=== PATIENT | male | born 1955 | race Caucasian/White ===

== ENCOUNTER 2020-03-17 19:42 | Emergency (ER) | payer SELFPAY ==
[~2020-03-17 19:42] MED LIST: Iopamidol-370 76% 500 ML 1 ML ONE
[2020-03-17] MEDS ORDERED: Ondansetron PF 4 MG/2 ML Vial ONE (19:50)
[2020-03-17] MEDS ORDERED: Morphine 4 MG/ML VIAL ONE (19:50)
[2020-03-17 20:07] LABS: #Basophils 0.1 thou/uL (0.0-0.2); #Eosinphils 0.1 thou/uL (0.0-0.7); #Monocytes 0.3 thou/uL (0.11-0.59); #Neutrophils 5.6 thou/uL (1.40-6.50); %Basophils 0.6 % (0.0-1.0); %Eosinophils 0.9 % (0.0-10.0); %Lymphocytes 25.2 % (21.0-51.0); %Monocytes 3.2 % (0.0-10.0); %Neutrophils 70.1 % (42.0-75.0); Hemoglobin 14.2 g/dL (14.0-18.0); Mean Corpuscular HGB CONC 33.1 g/dL (32.0-36.0); Mean Corpuscular Volume 96.5 fL (78.0-98.0); Mean Platelet Volume 8.1 fL (7.4-10.4); Platelet Count 180 thou/uL (130-400); RBC Distribution Width 11.8 % (11.5-14.5); Red Blood Cell (RBC) Count 4.44 mill/uL (4.70-6.10)
[2020-03-17] MEDS ORDERED: Fentanyl 100 MCG/2 ML VIAL ONE ×2 (20:10→20:46)
[2020-03-17] MEDS ORDERED: niCARdipine 20MG In NaCl 20 MG/200 ML BAG ONE ×2 (20:10→20:54)
[2020-03-17] MEDS ORDERED: Esmolol 2,500 MG/250 ML 250 ML ONE (20:13)
[2020-03-17 20:14] LABS: INR-International Normal Ratio 1.1
[2020-03-17 20:15] LABS: PTT 33.7 sec (22.9-36.1)
--- NOTE | 2020-03-17 20:27 | CT ---
Head CT without contrast 03/17/2020: Comparison: None HISTORY: Found down, leg numbness TECHNIQUE: Axial CT imaging at 5 mm intervals from vertex through skull base without contrast FINDINGS: The imaged paranasal sinuses and mastoid air cells are well aerated. There is no displaced calvarial fracture. No intracranial hemorrhage, midline shift, or mass effect. Areas of subtle periventricular hypodensity noted, suggesting small vessel disease. Areas of prior lacunar infarction are noted within the periventricular white matter and the basal ganglia on the left. IMPRESSION: Findings suggesting small vessel disease. No intracranial hemorrhage or displaced calvari al fracture.
[2020-03-17 20:30] LABS: ALT (SGPT) Less than 7 U/L (8-55); AST (SGOT) 19 U/L (5-34); Albumin 4.2 g/dL (3.4-4.8); Alkaline Phosphatase 90 U/L (40-110); Anion Gap 25 mmol/L (10-20); BUN (Urea Nitrogen) 18 mg/dL (8.4-25.7); Bilirubin, Total 0.6 mg/dL (0.2-1.2); Calc. Creatinine Clearance 0 mL/min (70-130); Calcium 9.4 mg/dL (7.8-10.44); Carbon Dioxide 13 mmol/L (23-31); Chloride 101 mmol/L (98-107); D-Dimer Test Greater than 20.00 *mcg/mL (0.27-0.43); Estimated GFR-MDRD 52; Globulin 2.9 g/dL (2.4-3.5); Glucose 281 mg/dL (80-115); Potassium 3.6 mmol/L (3.5-5.1); Protein, Total 7.1 g/dL (5.8-8.1); Sodium 135 mmol/L (136-145)
[2020-03-17] MEDS ORDERED: Rocuronium Bromide 10 MG/ML (10ML VIAL) ONE (20:30)
--- NOTE | 2020-03-17 20:34 | CT ---
CT of thecervical spine: 03/17/2020 COMPARISON:None available HISTORY:Found down, leg numbness TECHNIQUE: Serial axial CT imaging at2.5 mm intervals from theskull base through the lung apices with out contrast. Coronal and sagittal reformatted imaging obtained. Findings:The visualized lung apices appear unremarkable. Partially imaged paranasal sinuses and mastoid air cells appear well-aerated. The C1 ring appears intact. There is moderate degenerative change at the atlantoaxial interspace. The craniocervical junction, the atlantoaxial interspace, and the cervicothoracic junction demonstrate no acute findings. The occipital condyles, the dens, and the C1-2 articulation appear within normal l imits. There is fusion of the facet joint on the left at C3-4. There is disc space narrowing with degenerati ve endplate change at C5-6, C6-7, and C7-T1. Multilevel lower lumbar spine facet hypertrophic change present. There is no significant cervical spine anterolisthesis or retrolisthesis. No prevertebral soft tissue swelling is seen. No acute cervical spine fracture or dislocation is appreciated. IMPRESSION: Multilevel degenerative change. No acute osseous abnormality.
--- NOTE | 2020-03-17 20:37 | RAD ---
RADIOGRAPH CHEST 1 VIEW: Date: 03-17-2020 Time: 7:38 P.M. HISTORY: 64-year-old male with hypertension and diaphoresis. COMPARISON: None FINDINGS: Diffusely prominent interstitial markings, especially throughout the left lung, where there is questi on of mild multifocal faint infiltrates in the upper and midlung zones. No consolidation identified i n the right lung. No cardiomegaly. Ectasia and tortuosity in the aorta. No pneumothorax. IMPRESSION: Questionable mild left sided infiltrates. JN POS: JIN
[2020-03-17] MEDS ORDERED: cefTRIAXone\\ROCEPHIN 1 GM VIAL ONE (20:41)
[2020-03-17 20:51] LABS: CKMB 5.2 ng/mL (0-6.6)
--- NOTE | 2020-03-17 21:10 | RAD ---
Supine frontal chest radiograph: 03/17/2020 COMPARISON: 03/17/2020 HISTORY: Evaluate chest following central line placement FINDINGS: Patchy nonspecific parenchymal opacities are noted within the bilateral lung bases, left gr eater than right, better assessed on recent chest CT. There is a right-sided vascular catheter with distal tip overlying the region of the cavoatrial junction. Supine imaging is provided, limiting asse ssment for pneumothorax. There is prominence of the aortic knob, better assessed on prior chest CT as well. IMPRESSION: Right vascular catheter as above.
--- NOTE | 2020-03-17 21:24 | CT ---
CTA THORAX WITH CONTRAST CTA ABDOMEN WITH CONTRAST: (Computed Tomographic Angiography, chest(noncoronary) with contrast material, and image post processi ng) (Computed Tomographic Angiography, abdomen with contrast material, and image post processing) DATE: 03-17-2020 TIME: 8:06 p.m. HISTORY: 64-year-old male with chest pain. At 8:[address] on 03-17-2020 Dr. Melo discussed all of the pertinent findings by telephone with Dr. Ki jiménez of the ER. TECHNIQUE: IV injection of iodinated contrast: 100 mL Isovue 370 Arterial phase bolus chasing technique. Scan acquisition from top of top of aortic arch to iliac crests. 3D coronal and sagittal MIP reconstructions. FINDINGS: There is dissection of the ectatic and tortuous aorta beginning in the descending thoracic aorta, and propogating through the very tortuous thoracoabdominal segment, and extending to the aortic bifurcat ion. The aortic bifurcation is completely occluded by thrombus, which is probably acute, and this mirian t extends into the origins of the bilateral common iliac arteries. Only the origins of the bilateral common iliac arteries were included on this scan. 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 The clot in the SMA begins at its origin, but the complete occlusion of the SMA begins approximately 2-3 cm distal to the origin. There are multiple mildly to moderately enlarged bilateral mediastinal and hilar lymph nodes. At the lung bases, there are somewhat severe broad ground glass infiltrates throughout the posterior, subpleural, dependent portions of bilateral lower lobes. In addition to the severe ground glass infiltrates, there is a more focal approximately 3 x 3 x 2 cm mass-like lesion at the posterior base of the left lower lobe. There is no thrombus in the pulmonic trunk or the left or right main pulmonary arteries. All of the branches of the bilateral pulmonary arteries are difficult to evaluate for PE because the contrast bolus timing was optimized for the aorta rather than pulmonary arteries. It is difficult to rule in or rule out bilateral pulmonary thromboembolism in the branches. There are upper and mid lung zone dominant reticular, chronic subpleural densities in the peripheral lungs. No pneumothorax. Trachea and bilateral mainstem bronchi are patent and clear. No cardiomegaly. 3.5 cm right renal upper pole parapelvic cyst. No hydronephrosis. Within the limitations of an arterial phase only scan, no major gross pathology identified involving the liver, pancreas, left kidney or spleen. No small bowel dilatation. No pneumoperitoneum identified. No small bowel dilatations superior to the iliac crests. Multilevel degenerative disc disease throughout the lumbar spine. No vertebral body collapse in the T -spine. IMPRESSION: 1. [place] type B aortic dissection. 2. 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 3. 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 5. A 2 x 3 x 3 cm focal mass-like pulmonary lesion at the posterior base of the left lower lobe: lung cancer versus pneumonia. 6. Somewhat severe ground glass densities throughout the posterior, dependent portions of bilate ral lower lobes. Etiology uncertain. 7. Nonspecific diffuse chronic lung changes. 8. Nonspecific mediastinal and hilar lymphadenopathy. jn POS: JIN
== END 2020-03-17 20:55 | disposition short-term general hospital (02) ==
LOC: ERS 19:42
DX: I71.03 Dissection of thoracoabdominal aorta (principal); I16.1 Hypertensive emergency; I10 Essential (primary) hypertension; F17.210 Nicotine dependence, cigarettes, uncomplicated
CPT/HCPCS: 36416; 36556; 36620; 70450; 71045; 71275; 72125; 74174; 80053; 82553; 84484; 85025; 85379; 85610; 85730; 93005; 96365; 96368; 96375; 96376; J0696; J2270; J2405; J3010; Q9967